=== PATIENT | male | born 1980 | race Caucasian/White ===

== ENCOUNTER 2024-09-12 09:38 | Outpatient (REF) | payer OTHER, SELFPAY ==
--- OUTSIDE RECORDS SUMMARY | 2024-09-12 09:58 | XMS_ITS | Clinical Summary ---
Author Organization [facility] [address] [facility] [address] Address [address] [place] [address] Phone Care Team Providers Care National Sales Director Name Role Phone Christy Hicks MD Primary Care Provider Allergies No known active allergies Medications divalproex (DEPAKOTE ER) 250 mg 24 hr tablet Take 1 Tablet by mouth at bedtime. In addition to 1500mg 06/28/2022 Active divalproex (DEPAKOTE ER) 500 mg 24 hr tablet Take 3 Tablets by mouth at bedtime. Take with 250 mg tablet at bedtime 06/28/2022 Active loperamide (IMODIUM A-D) 2 mg tablet Take 1 Tablet by mouth 3 times daily as needed for Diarrhea (IBS-D). 08/25/2022 Active busPIRone (BUSPAR) 15 mg tablet Take 15 mg by mouth 3 times daily. Active cloNIDine (CATAPRES) 0.2 mg tablet Take 0.2 mg by mouth every evening. Active hydrOXYzine HCL (ATARAX) 50 mg tablet Take 50 mg by mouth 2 times daily as needed. Active pravastatin (PRAVACHOL) 40 mg tablet Take 1 tablet (40 mg total) by mouth 1 (one) time each day. 90 tablet 1 01/23/2024 Active lisinopriL (PRINIVIL,ZESTR IL) 5 mg tablet Take 1 tablet (5 mg total) by mouth 1 (one) time each day. 90 tablet 1 01/23/2024 Active Active Problems Problem Noted Date Diagnosed Date Fatty liver 05/15/2016 Hyperlipidemia 07/13/2015 Vitamin D deficiency 07/13/2015 Anxiety 07/05/2015 Depression 07/05/2015 Overview (12/13/2023): Follows with [facility] at [facility] Essential hypertension 07/05/2015 ARIK on CPAP 07/05/2015 Encounters Date Type Department Care Team Description 07/22/2024 11:00 AM EDT Office Visit Adult [place] [address] [place] [id number] Juan Crandall, KRISTY Essential hypertension (Primary Dx); Hyperlipidemia, unspecified hyperlipidemia type; Anxiety; Depression, unspecified depression type; Tobacco use disorder, mild, in sustained remission from Last 3 Months Immunizations Name Administration Dates Next Due H1N1 Inj 12/18/2023 Influenza Quadravalent, MDCK , 0.5ml, preservative free (Flucelvax) 6mo and older 11/20/2022,11/18/2021 Influenza Quadravalent, MDCK , 0.5ml, with preservative (Flucelvax) 6mo and older 01/05/2021 Influenza Quadrivalent, 0.5m l, preservative free (Fluarix; FluLaval; Fluzone) ages 6mo and older (Afluria) 3yo and older 01/05/2021 Influenza trivalent, MDCK, 0 .5mL, preservative free (Flucelvax) 6mo and older 11/12/2023 Influenza, Unspecified 12/16/2022 [employer] (ages 12 & older) Bivalent, COVID-19 11/03 [employer] [place] Covid-19 Bivalent, Or iginal + Ba.1 (Non-US Trademark 3KeyIt Bivalent) 11/18/2021 Tdap Tetanus diptheria acell ular pertussis (Boostrix; Adacel) 7yo and older 01/10/2023 Surgical History Surgery Date Site/Laterality Comments APPENDECTOMY PROCEDURE: HISTORICAL APPENDECTOMY CIRCUMCISION, PRIMARY PROCEDURE: HISTORICAL CIRCUMCISION Medical History Medical History Date Comments Essential hypertension 07/05/2015 DX:Essent ial hypertension Depression 07/05/2015 DX:Depression Anxiety 07/05/2015 DX:Anxiety ARIK on CPAP 07/05/2015 DX:ARIK on CPAP Hyperlipidemia 07/13/2015 DX:Hyperlipidemi a Vitamin D deficiency 07/13/2015 DX:Vitamin D deficiency Fatty liver 05/15/2016 DX:Fatty liver Family History Medical History Relation Name Comments No Known Problems Daughter Brain cancer Mother No Known Problems Son 1 No Known Problems Son 2 No Known Problems Son 3 No Known Problems Son 4 Relation Name Status Comments Brother 1 Alive Brother 2 Alive Daughter Alive Father (Age 53) homicide Mother Son 1 Alive Son 2 Alive Son 3 Alive Son 4 Alive Social History Tobacco Use Types Packs/Day Years Used Date Smoking Tobacco: Former Cigarettes Q uit: 09/01/2022 Smokeless Tobacco: Never Alcohol Use Standard Drinks/Week Comments Not Currently 0 (1 standard drink = 0.6 oz pur e alcohol) Sex and Gender Information Value Date Recorded Sex Assigned at Not on file Legal Sex Male 5:46 AM EST Gender Identity Not on file Sexual Orientation Not on file Obstetrics History Last Filed Vital Signs Vital Sign Reading Time Taken Comments Blood Pressure 142/79 07/22/2024 10:09 AM EDT Pulse 86 07/22/2024 10:09 AM EDT Temperature 36.5 C (97.7 F) 07/22/2024 10:09 AM EDT Respiratory Rate - - Oxygen Saturation - - Inhaled Oxygen Concentration - - Weight 91.4 kg (201 lb 6.4 oz) 07/22/2024 10:09 AM EDT Height 175.3 cm (5' 9 ) 07/22/2024 10:09 AM EDT Body Mass Index 29.74 07/22/2024 10:09 AM EDT Plan of Treatment Upcoming Encounters Date Type Department Care Team (Late st Contact Info) Description 01/22/2025 10:00 AM EST Office Visit Adult Medicine [address] [phone] Juan Crandall PA [address] [place] [address] Health Maintenance Due Date Last Done Comments Hepatitis B Vaccines (1 of 3 - 19+ 3-dose series) 2001 Pneumococcal Vaccine: Pediatrics (0 to 5 Years) and At-Risk Patients (6 to 49 Years) (1 of 2 - PCV) 2001 HIV Screening 2022 Social Influ[employer] of Health Screening 2022 COVID-19 Vaccine ( season) 2023 11/18/2021, 03/10/2021, 07/24/2020, Additional history exists Depression Screening 09/16/2024 09/17/2023 Influenza Vaccine (#1) 2024 , 11/12/2023, 12/16/2022, Additional history exists Hypertension/CHF/CAD Annual BMP Blood Test 01/22/2025 01/23/2024, 09/17/2023, 09/17/2023 Cholesterol Screening (Lipid Panel) 01/22/2029 01/23/2024, 09/17/2023, 09/17/2023 DTaP,Tdap,and Td Vaccines (2 - Td or Tdap) 01/10/2033 01/10/2023 Hepatitis C Screening Completed 01/23/2024 HIB Vaccines Aged Out No longer eligi ble based on patient's age to complete this topic HPV Vaccines Aged Out No longer eligi ble based on patient's age to complete this topic Hepatitis A Vaccines Aged Out No long er eligible based on patient's age to complete this topic IPV Vaccines Aged Out No longer eligi ble based on patient's age to complete this topic MMR Vaccines Aged Out No longer eligi ble based on patient's age to complete this topic Meningococcal ACWY Vaccine Aged Out N o longer eligible based on patient's age to complete this topic Meningococcal B Vaccine Aged Out No l onger eligible based on patient's age to complete this topic RSV Immunization Patients Under 20 months Aged Out No longer eligible based on patient's age to complete this topic Varicella Vaccines Aged Out No longer eligible based on patient's age to complete this topic Procedures Procedure Name Priority Date/Time Associated Diagnosis Comments HEPATITIS C ANTIBODY Routine 01/23/2024 3:45 PM EST Need for hepatitis C screening test COMPREHENSIVE METABOLIC PANEL Routine 01/23/2024 3:45 PM EST Adult general medical examination LIPID PANEL WITH REFLEX TO DIRECT LDL Routine 01/23/2024 3:45 PM EST Adult general medical examination HM DEPRESSION SCREENING Routine 09/17/2023 from Last 3 Months or Most Recently Relevant to Health Maintenance Results * Hepatitis C antibody (01/23/2024 3:45 PM EST) [facility] Hepatitis C Antibody Negative Negative LAB CHEMISTRY METHOD 01/23/2024 7:37 PM EST [facility] Blood Venous blood specimen / Unknown Venipuncture / Unknown 01/23/2024 3:45 PM EST 01/23/2024 3:45 PM EST us Juan WAGNER LAB BLOOD ORDERABLES Final Re sult [facility] [address] [place] [address], [place] [phone] * (ABNORMAL) Lipid panel with reflex to direct LDL (01/23/2024 3:45 PM EST) [facility] Cholesterol 214(H) 0 - 200 mg/dL LAB CHEMISTRY METHOD 01/23/2024 6:49 PM [facility] Triglycerides 113 0 - 150 mg/dL LAB CHEMISTRY METHOD 01/23/2024 6:49 PM [facility] HDL 57 >=40 mg/dL LAB CHEMISTRY METHOD 01/23/2024 6:49 PM [facility] LDL Calculated 134(H) 0 - 100 mg/dL LAB CHEMISTRY METHOD 01/23/2024 6:49 PM [facility] VLDL Cholesterol Owen 22.6 mg/dL LAB CHEMISTRY METHOD 01/23/2024 6:49 PM [facility] Non HDL Chol. (LDL+VLDL) 157(H) <145 mg/dL LAB CHEMISTRY METHOD 01/23/2024 6:49 PM [facility] Chol/HDL Ratio 3.8 0.0 - 4.4 LAB CHEMISTRY METHOD 01/23/2024 6:49 PM [facility] Blood Venous blood specimen / Unknown Venipuncture / Unknown 01/23/2024 3:45 PM EST 01/23/2024 3:45 PM EST us Juan WAGNER LAB BLOOD ORDERABLES Final Re sult [facility] [address] [place] [address], * (ABNORMAL) Comprehensive metabolic panel (01/23/2024 3:45 PM EST) Sodium 139 133 - 145 mmol/L LAB CHEMISTRY METHOD 01/23/2024 6:49 PM [facility] Potassium 4.5 3.5 - 5.5 mmol/L LAB CHEMISTRY METHOD 01/23/2024 6:49 PM [facility] Chloride 104 96 - 110 mmol/L LAB CHEMISTRY METHOD 01/23/2024 6:49 PM [facility] CO2 28 21 - 32 mmol/L LAB CHEMISTRY METHOD 01/23/2024 6:49 PM [facility] Anion Gap 7 3 - 11 LAB CHEMISTRY METHOD 01/23/2024 6:49 PM [facility] Glucose 83 70 - 100 mg/dL LAB CHEMISTRY METHOD 01/23/2024 6:49 PM [facility] BUN 13 5 - 25 mg/dL LAB CHEMISTRY METHOD 01/23/2024 6:49 PM [facility] Creatinine 1.05 0.70 - 1.30 mg/dL LAB CHEMISTRY METHOD 01/23/2024 6:49 PM [facility] eGFR 91 >=60 mL/min/1. 73m2 LAB CHEMISTRY METHOD 01/23/2024 6:49 PM [facility] Comment:Calculation based on the Chronic Kidney Disease Epidemiology Collaboration (CKD-EPI) equation refit without adjustment for race. BUN/Creatinine Ratio 12.4 LAB CHEMISTRY METHOD 01/23/2024 6:49 PM [facility] Calcium 10.0 8.5 - 10.5 mg/dL LAB CHEMISTRY METHOD 01/23/2024 6:49 PM [facility] AST (SGOT) 25 10 - 42 unit/L LAB CHEMISTRY METHOD 01/23/2024 6:49 PM [facility] ALT (SGPT) 70(H) 10 - 60 unit/L LAB CHEMISTRY METHOD 01/23/2024 6:49 PM [facility] Alkaline Phosphatase 59 42 - 121 unit/L LAB CHEMISTRY METHOD 01/23/2024 6:49 PM [facility] Total Protein 7.5 6.0 - 8.0 g/dL LAB CHEMISTRY METHOD 01/23/2024 6:49 PM [facility] Albumin 4.3 3.2 - 5.0 g/dL LAB CHEMISTRY METHOD 01/23/2024 6:49 PM [facility] Total Bilirubin 0.2 0.0 - 1.4 mg/dL LAB CHEMISTRY METHOD 01/23/2024 6:49 PM [facility] Blood Venous blood specimen / Unknown Venipuncture / Unknown 01/23/2024 3:45 PM EST 01/23/2024 3:45 PM EST Juan WAGNER LAB BLOOD ORDERABLES Final Re sult [facility] [address] [place] [address], * Depression Screening (09/17/2023) [facility] Depression Screening abstracted Historical Provider HEALTH MAINTENANCE Final Result from Last 3 Months or Most Recently Relevant to Health Maintenance Insurance [facility] Care Teams National Sales Director Relationship Specialty Start Date End Date Christy Hicks MD [address] [place] [id number] PCP - General Internal Medicine 12/08/21
[2024-09-12 11:31] LABS: MANUAL DIFF FLAG NO
[2024-09-12 11:49] LABS: Hematocrit 41.8 % (42.0-52.0); Hemoglobin 13.5 g/dl (14.0-18.0); Imm Gran Abs Auto 0.03 X10*3/uL (0.00-0.03); Imm Gran Pct Auto 0.4 % (0.0-0.4); Lymphocytes Absolute Auto 3.2 X10*3/uL (1.2-4.9); Mean Corpuscular HGB Conc 32.3 g/dl (31.0-36.0); Mean Corpuscular Hemoglobin 27.9 pg (27.0-33.0); Mean Corpuscular Volume 86.4 fL (80.0-98.0); NRBC Abs Auto 0.000 X10*3/uL (0.0-0.012); NRBC Pct Auto 0.0 /100WBC (0.0-0.2); Platelet Count 242 X10*3/uL (160-400); Red Blood Count 4.84 X10*6/uL (4.60-5.80); White Blood Count 8.2 X10*3/uL (4.8-10.8)
[2024-09-12 12:07] LABS: Alanine Aminotransferase 43 U/L (0-40); Albumin Level 4.4 g/dL (3.5-5.0); Alkaline Phosphatase 48 U/L (39-117); Anion Gap 11 (12-20); Aspartate Amino Transferase 21 U/L (5-37); Blood Urea Nitrogen 13 mg/dL (9-16); Calcium 9.3 mg/dL (8.4-10.2); Carbon Dioxide 28 mmol/L (22-29); Chloride 106 mmol/L (96-108); Estimated Glomerular Filt Rate > 60; Potassium 4.2 mmol/L (3.3-5.1); Sodium 141 mmol/L (135-145); Total Protein 6.8 g/dL (6.5-8.0)
== END 2024-09-12 09:39 | disposition home or self-care (01) ==
LOC: HO.HHCL 09:38
PROVIDERS: PCP Family Medicine; Visit Provider Psychiatry & Neurology Psychiatry
DX: Z79.899 Other long term (current) drug therapy (principal)
CPT/HCPCS: 36415; 80053; 80164; 82248; 84443; 85025